=== PATIENT | female | born 1995 | race Two or more races ===

== ENCOUNTER → 2017-12-28 | Outpatient (CLI) | payer OTHER ==
--- NOTE | 2017-12-28 14:59 | RAD ---
Obstetrical ultrasound, 12/28/2017: HISTORY: Uterine size/date discrepancy There is a single intrauterine fetus in a breech orientation. The biparietal diameter measures 7.2 cm compatible with a gestational age of 28-29 weeks. The femur length measurement suggests a gestational age of 27-28 weeks. The average gestational age based on all of the measurements is 28 weeks and 3 days yielding a sonographic EDC of 03/19/2018. Normal activity and heart motion are seen. A 4 chamber heart is evident with a heart rate of 145 bpm. Fluid is identified in the bladder and stomach. The visualized portions of the spine and kidneys are unremarkable. A three-vessel umbilical cord is evident with a normal cord insertion site. The placenta lies anteriorly. A normal amount of amniotic fluid is evident. The cervical length is 5.8 cm. The maternal ovaries were not visualized. IMPRESSION: Single viable intrauterine fetus of 28-29 weeks gestational age as described above. Electronically signed by: Lm Ahn MD (12/28/2017 2:55 PM) [facility]
== END | disposition home or self-care (01) ==
LOC: US 10:05
PROVIDERS: ATTEND Obstetrics & Gynecology
DX: O26.843 Uterine size-date discrepancy, third trimester (principal); Z3A.29 29 weeks gestation of pregnancy
CPT/HCPCS: 76805

== ENCOUNTER 2018-02-13 13:32 | Observation (INO) | payer OTHER ==
[2018-02-13 14:17] LABS: BILIRUBIN,URINE NEGATIVE (NEG); CLARITY,URINE CLEAR; COLOR,URINE YELLOW; NITRITE,URINE NEGATIVE (NEG); PROTEIN,URINE NEGATIVE (NEG-TRACE); UROBILINOGEN,URINE 0.2 mg/dL (0.2 mg/dL)
[2018-02-13 14:23] LABS: SQUAMOUS EPITHELIAL CELL,UR MOD /LPF
[2018-02-13 14:25] LABS: BACTERIA,URINE MODERATE /HPF (0-FEW); RBC,URINE 0 /HPF (0-2)
[2018-02-13] MEDS: IV RINGERS,LACTATED 1000ML 1,000 ML IV SCH ×3 (15:15→18:29)
[2018-02-13] MEDS ORDERED: TERBUTALINE 1 MG/ML VIAL. SQ ONE (16:00)
[2018-02-13 16:08] VITALS: BP 125/89
[2018-02-13] MEDS: LOPERAMIDE 2 MG CAPSULE PO PRN ×3 (16:08→21:16)
[2018-02-13] MEDS ORDERED: hydrOXYzine PAMOATE 25 MG CAPSULE PO PRN (20:15)
[2018-02-14] MEDS: IV RINGERS,LACTATED 1000ML 1,000 ML IV SCH (01:56)
--- NOTE | 2018-02-14 12:18 | PDOC1 ---
OB - History Hx of Present Care: Good Care Ultrasounds: Normal mid trimester US Obstetrical Complications: Other (Gastroenteritis) Medical Complications: None Past Family/Social History * Past Medical, Surgical, Family and Obstetric Histories reviewed from chart. Rubella: Immune RPR/VDRL: Negative GBS Status: Unknown HBsAG: Negative OB - Chief Complaint & HPI Date of Admission: Date of Admission: Feb 13, 2018 at 13:32 Chief Complaint/History : 1 Para: 0 EGA: 35 Reason for admission: observation (Gastroenteritis) Admission Nurse Assessment Rev: Yes OB - Admission Exam Physical Exam Vitals: VS - Last 72 Hours, by Label Date Time Temp Pulse Resp B/P (MAP) Pulse Ox O2 Delivery O2 Flow Rate FiO2 02/13/18 16:08 101 125/89 HEENT: Normal Heart: Regular Rate Lungs: Clear Abdomen: Gravid, Non tender, Soft Extremities: Edema Reflexes: Normal Cervical Dilatation: None Effacement: 0% Station: Ballotable Membranes: Intact Heart Rate: Normal Accelerations: Accelerations Present Decelerations: No decelerations Contractions on Admission: < 5 Minutes Apart Intensity: Mild Text A: 35 wks IUP contractions Gastroenteritis P: Observation for IV fluids and supportive care. Pt. improved overnight and will go home. F/u this week in clinic. YULY KYLE Jr, MD Feb 14, 2018 12:18
== END 2018-02-14 12:45 | disposition home or self-care (01) ==
LOC: 3 SO LND 13:32
PROVIDERS: ADMIT Obstetrics & Gynecology; ATTEND Obstetrics & Gynecology
DX: O62.9 Abnormality of forces of labor, unspecified (principal); O26.893 Other specified pregnancy related conditions, third trimester; R19.7 Diarrhea, unspecified; Z3A.35 35 weeks gestation of pregnancy; Z79.899 Other long term (current) drug therapy
CPT/HCPCS: 81001; 87086; 96372; G0378; G0379; J3105; Q0177; J7120

== ENCOUNTER 2018-03-01 19:39 | Observation (INO) | payer OTHER ==
[2018-03-01] MEDS ORDERED: IV RINGERS,LACTATED 1000ML 1,000 ML IV SCH (19:42)
[2018-03-01 20:15] LABS: BILIRUBIN,URINE NEGATIVE (NEG); CLARITY,URINE CLEAR; COLOR,URINE YELLOW; NITRITE,URINE NEGATIVE (NEG); PROTEIN,URINE NEGATIVE (NEG-TRACE); UROBILINOGEN,URINE 0.2 mg/dL (0.2 mg/dL)
[2018-03-01 20:30] LABS: BARBITURATES NEG (NEG); BENZODIAZEPINES NEG (NEG); CANNABINOIDS NEG (NEG); COCAINE NEG (NEG); METHADONE NEG (NEG); OPIATES NEG (NEG); PHENCYCLIDINE NEG (NEG)
[2018-03-01 20:32] LABS: AMPHETAMINE/METHAMPHETAMINE NEG (NEG)
[2018-03-01 20:41] LABS: BACTERIA,URINE MODERATE /HPF (0-FEW); RBC,URINE OCC /HPF (0-2); SQUAMOUS EPITHELIAL CELL,UR MOD /LPF
[2018-03-01 21:13] LABS: AMNIO PT NEGATIVE
== END 2018-03-01 21:45 | disposition home or self-care (01) ==
LOC: 3 SO LND 19:39
PROVIDERS: ADMIT Obstetrics & Gynecology; ATTEND Obstetrics & Gynecology
DX: O42.92 Full-term premature rupture of membranes, unspecified as to length of time between rupture and onset of labor (principal); Z3A.37 37 weeks gestation of pregnancy
CPT/HCPCS: 36415; 80307; 81001; 84112; 87086; G0378; G0379